=== PATIENT | female | born 1965 | race Two or more races ===

== ENCOUNTER → 2024-04-20 | Outpatient (CLI) | payer OTHER ==
[2024-04-20 08:54] LABS: Anion Gap 5 (5-15); BUN/Creatinine Ratio 17.1 (10.0-20.0); Blood Urea Nitrogen 13 mg/dL (9-23); Calcium 9.5 mg/dL (8.7-10.4); Carbon Dioxide 26 mmol/L (20-31); Glucose 84 mg/dL (74-106); Potassium 3.8 mmol/L (3.5-5.1); Sodium 139 mmol/L (136-145); Triglycerides 70 mg/dL (< 150)
[2024-04-20 08:55] LABS: Bilirubin, Total 0.5 mg/dL (0.2-1.0); Total Protein 7.9 g/dL (5.7-8.2)
[2024-04-20 08:59] LABS: Alanine Aminotransferase 61 U/L (7-40); Albumin 4.8 g/dL (3.2-4.8); Alkaline Phosphatase 368 U/L (46-116); Aspartate Aminotransferase 45 U/L (13-40); Chloride 108 mmol/L (98-107); Cholesterol 211 mg/dL (< 200); HDL Cholesterol 98 mg/dL (40-59); LDL Cholesterol 107 mg/dL (< 100)
[2024-04-20 09:17] LABS: Hepatitis B Surface Antigen Negative (Negative)
[2024-04-20 09:32] LABS: Hepatitis A Ab IgM Negative; Hepatitis B Core IgM Negative (Negative); Hepatitis C Antibody Negative (Negative)
[2024-04-20 10:36] LABS: Free T3 2.58 pg/mL (2.3-4.2); T3 Total 1.25 ng/mL (0.60-1.81)
[2024-04-20 10:38] LABS: Free T4 (Free Thyroxine) 1.31 ng/dL (0.89-1.76)
[2024-04-21 08:06] LABS: Complement C3 155 mg/dL (82-167); Rheumatoid Arthritis Factor 16.9 IU/mL (<14.0); Thyroid Peroxidase (TPO) Ab 17 IU/mL (0-34)
[2024-04-21 15:06] LABS: Anti-Nuclear Antibody Direct Positive (Negative); Anti-dsDNA Antibody 7 IU/mL (0-9); Antiscleroderma-70 Antibody <0.2 AI (0.0-0.9); RNP Antibody 1.8 AI (0.0-0.9); Sjogren's Anti-SS-A Antibody >8.0 AI (0.0-0.9); Sjogren's Anti-SS-B Antibody 0.3 AI (0.0-0.9); Smith Antibody 5.3 AI (0.0-0.9)
[2024-04-21 22:06] LABS: Chlamydia Trachomatis, NAA Negative (Negative); Neisseria gonorrhoeae, NAA Negative (Negative)
[2024-04-22 14:06] LABS: Actin (Smooth Muscle) Antibody 14 Units (0-19); Mitochondrial (M2) Antibody <20.0 Units (0.0-20.0)
[2024-04-23 03:06] LABS: QuantiFERON-TB Gold Plus Negative (Negative)
== END | disposition home or self-care (01) ==
LOC: LAB 07:22
PROVIDERS: ATTEND Family Medicine
DX: Z00.01 Encounter for general adult medical examination with abnormal findings (principal); M81.0 Age-related osteoporosis without current pathological fracture; M32.19 Other organ or system involvement in systemic lupus erythematosus; M32.9 Systemic lupus erythematosus, unspecified; E78.5 Hyperlipidemia, unspecified; E03.9 Hypothyroidism, unspecified; E55.9 Vitamin D deficiency, unspecified
CPT/HCPCS: 36415; 80053; 80061; 80074; 82043; 82306; 83036; 84439; 84443; 84480; 84481; 86160; 86225; 86235; 86376; 86431

== ENCOUNTER → 2024-07-03 | Outpatient (CLI) | payer OTHER ==
[2024-07-03 07:33] LABS: Albumin 4.5 g/dL (3.2-4.8); BUN/Creatinine Ratio 23.4 (10.0-20.0); Calcium 9.8 mg/dL (8.7-10.4); Total Protein 7.7 g/dL (5.7-8.2)
[2024-07-03 07:34] LABS: Bilirubin, Direct 0.2 mg/dL (<0.3); Bilirubin, Total 0.5 mg/dL (0.2-1.0); Phosphorus 3.6 mg/dL (2.4-5.1)
== END | disposition home or self-care (01) ==
LOC: LAB 06:56
PROVIDERS: ATTEND Family Medicine
DX: E03.9 Hypothyroidism, unspecified (principal); M06.9 Rheumatoid arthritis, unspecified; M32.9 Systemic lupus erythematosus, unspecified; R79.89 Other specified abnormal findings of blood chemistry
CPT/HCPCS: 36415; 80069; 80076; 84443

== ENCOUNTER → 2024-10-09 | Outpatient (CLI) | payer OTHER ==
[2024-10-09 08:52] LABS: Albumin 4.4 g/dL (3.2-4.8); Anion Gap 8 (5-15); BUN/Creatinine Ratio 19.2 (10.0-20.0); Blood Urea Nitrogen 14 mg/dL (9-23); Calcium 9.6 mg/dL (8.7-10.4); Carbon Dioxide 25 mmol/L (20-31); Glucose 83 mg/dL (74-106); Potassium 4.3 mmol/L (3.5-5.1); Sodium 141 mmol/L (136-145); Total Protein 7.3 g/dL (5.7-8.2); Triglycerides 78 mg/dL (< 150)
[2024-10-09 08:53] LABS: Bilirubin, Total 0.4 mg/dL (0.2-1.0); Cholesterol 193 mg/dL (< 200)
[2024-10-09 08:55] LABS: Urine Protein, UAD Negative (Negative)
[2024-10-09 08:59] LABS: Alanine Aminotransferase 56 U/L (7-40); Alkaline Phosphatase 327 U/L (46-116); Chloride 108 mmol/L (98-107); HDL Cholesterol 84 mg/dL (40-59)
== END | disposition home or self-care (01) ==
LOC: LAB 07:23
PROVIDERS: ATTEND Family Medicine
DX: E03.9 Hypothyroidism, unspecified (principal); E78.5 Hyperlipidemia, unspecified; E10.9 Type 1 diabetes mellitus without complications
CPT/HCPCS: 36415; 80053; 80061; 81001; 83036; 84443; 87086

== ENCOUNTER 2024-10-28 14:33 | Outpatient (CLI) | payer OTHER ==
[2024-10-28 14:55] LABS: Hematocrit 38.7 % (36.0-46.0); Hemoglobin 13.1 g/dL (12.2-16.2); Mean Corpuscular Hemoglobin 30.3 pg (28.0-32.0); Mean Corpuscular Volume 89.1 fL (80.0-100.0); Nucleated Red Blood Cells % 0.0 %
[2024-10-28 15:10] LABS: Urine Protein, UAD Negative (Negative)
[2024-10-28 15:23] LABS: Albumin 4.4 g/dL (3.2-4.8); Anion Gap 7 (5-15); BUN/Creatinine Ratio 22.5 (10.0-20.0); Blood Urea Nitrogen 16 mg/dL (9-23); Calcium 9.0 mg/dL (8.7-10.4); Carbon Dioxide 28 mmol/L (20-31); Glucose 82 mg/dL (74-106); Microalb/Creat Ratio, Urine 9.00; Potassium 3.6 mmol/L (3.5-5.1); Sodium 142 mmol/L (136-145); Total Protein 7.0 g/dL (5.7-8.2)
[2024-10-28 15:24] LABS: Alanine Aminotransferase 83 U/L (7-40); Alkaline Phosphatase 392 U/L (46-116); Bilirubin, Total 0.3 mg/dL (0.2-1.0); Chloride 107 mmol/L (98-107)
[2024-10-29 09:07] LABS: Anti-Nuclear Antibody Direct Positive (Negative); Anti-dsDNA Antibody 8 IU/mL (0-9); Antiscleroderma-70 Antibody <0.2 AI (0.0-0.9); Sjogren's Anti-SS-A Antibody >8.0 AI (0.0-0.9); Sjogren's Anti-SS-B Antibody 0.2 AI (0.0-0.9)
== END 2024-10-28 17:00 | disposition home or self-care (01) ==
LOC: LAB 14:33
PROVIDERS: ATTEND Nurse Practitioner Family
DX: M32.9 Systemic lupus erythematosus, unspecified (principal); M06.9 Rheumatoid arthritis, unspecified; N39.0 Urinary tract infection, site not specified
CPT/HCPCS: 36415; 80053; 81001; 82043; 82570; 85025; 86160; 86225; 86235; 86376; 86431; 87086